=== PATIENT | male | born 1960 | race Caucasian/White ===

== ENCOUNTER 2025-01-02 21:43 | Emergency (ER) | payer OTHER ==
[~2025-01-02 21:43] MED LIST: Iopamidol 370 76% 100 ML VIAL ONE
[2025-01-02 21:59] LABS: #Basophils 0.1 thou/uL (0.0-0.2); #Eosinophils 1.1 thou/uL (0.0-0.7); #Lymphocytes 2.8 thou/uL (1.20-3.40); #Monocytes 0.6 thou/uL (0.11-0.59); #Neutrophils 3.1 thou/uL (1.40-6.50); %Basophils 1.4 % (0.0-1.0); %Lymphocytes 36.7 % (21.0-51.0); %Monocytes 7.5 % (0.0-10.0); %Neutrophils 40.3 % (42.0-75.0); Hematocrit 44.5 % (42.0-52.0); Mean Corpuscular HGB CONC 33.6 g/dL (32.0-36.0); Mean Corpuscular Hemoglobin 27.5 pg (27.0-31.0); Mean Corpuscular Volume 81.7 fl (78.0-98.0); Platelet Count 217 10x3/uL (130-400); RBC Distribution Width 12.1 % (11.5-14.5); Red Blood Cell (RBC) Count 5.45 mill/uL (4.70-6.10); White Blood Cell (WBC) Count 7.7 10x3/uL (4.8-10.8)
[2025-01-02 22:07] LABS: INR-International Normal Ratio 1.1; Prothrombin Time 14.1 sec (12.0-14.7)
[2025-01-02 22:08] LABS: PTT 35.5 sec (22.9-36.1)
[2025-01-02 22:17] LABS: ALT (SGPT) 20 U/L (Less than 45); AST (SGOT) 18 U/L (11-34); Albumin 4.1 g/dL (3.1-4.5); Alkaline Phosphatase 97 U/L (40-110); Anion Gap 14 mmol/L (10-20); BUN (Urea Nitrogen) 14 mg/dL (8.4-25.7); Bilirubin, Total 0.8 mg/dL (0.3-1.2); Calc. Creatinine Clearance 0 mL/min (70-130); Carbon Dioxide 24 mmol/L (23-31); Chloride 102 mmol/L (98-107); Estimated GFR 100; Globulin 3.4 g/dL (2.4-3.5); Glucose 263 mg/dL (80-115); Potassium 4.6 mmol/L (3.5-5.1); Protein, Total 7.5 g/dL (5.8-8.1); Sodium 135 mmol/L (136-145); Troponin I Less than 0.010 ng/mL (< 0.028)
[2025-01-02] MEDS ORDERED: Morphine 2 MG/ML VIAL ONE (23:30)
[2025-01-03] MEDS ORDERED: Morphine 2 MG/ML VIAL ONE (01:05)
[2025-01-03 01:33] LABS: Troponin I Less than 0.010 ng/mL (< 0.028)
== END 2025-01-03 03:10 | disposition short-term general hospital (02) ==
LOC: NAV ERS 21:43 → EEVIPCON 21:43 → NAV ERS 01-03 03:10
DX: I63.9 Cerebral infarction, unspecified (principal); R07.2 Precordial pain; R29.717 NIHSS score 17; I11.0 Hypertensive heart disease with heart failure; I50.9 Heart failure, unspecified; I25.10 Atherosclerotic heart disease of native coronary artery without angina pectoris; E11.9 Type 2 diabetes mellitus without complications
CPT/HCPCS: 36415; 70450; 70496; 70498; 71045; 80053; 84484; 85025; 85379; 85610; 85730; 93005; 94760; 96374; 96376; J2272; Q9967